=== PATIENT | female | born 1990 | race Caucasian/White ===

== ENCOUNTER 2018-01-09 11:41 | Emergency (ER) | payer BC, OTHER ==
[2018-01-09] MEDS ORDERED: KETOROLAC 30 MG/ML 1 ML VIAL IM STA (12:21)
--- NOTE | 2018-01-09 12:21 | ED ---
General Adult HPI - General Chief complaint: Upper Respiratory Infection Stated complaint: flu like symptoms Time Seen by Provider: 01/09/18 12:13 Source: patient, RN notes reviewed Mode of arrival: ambulatory Limitations: no limitations - History of Present Illness Initial comments: 27 yo female presenting for evaluation of his congestion, cough, and vomiting. Patient's symptoms have been present for the past 24 hours. She also complains of subjective fever and chills. Denies sore throat. Denies abdominal pain. Patient states she had significant amount of vomiting yesterday, this is progressed to dry heaving and according to the patient is somewhat improved. No diarrhea. No dysuria. No specific pain complaint. - Related Data Previous Rx's Medication Instructions Recorded Acetaminophen-Codeine 300-30mg 1 tab PO Q4H PRN #20 tablet 10/14/15 [Tylenol #3] Clindamycin HCl 300 mg PO Q6HR #40 cap 10/14/15 Ibuprofen [Motrin] 600 mg PO Q8HR PRN #20 tab 10/14/15 Levofloxacin [Levaquin] 500 mg PO DAILY 3 Days #5 tab 01/09/18 Allergies Allergy/AdvReac Type Severity Reaction Status Date / Time Penicillins Allergy Unknown Verified 01/09/18 12:10 Review of Systems ROS Statement: Those systems with pertinent positive or pertinent negative responses have been documented in the HPI. ROS Other: All systems not noted in ROS Statement are negative. Past Medical History Additional Past Medical History / Comment(s): vertigo History of Any Multi-Drug Resistant Organisms: None Reported Past Surgical History: Tonsillectomy Past Psychological History: Depression Smoking Status: Never smoker Past Alcohol Use History: None Reported Past Drug Use History: None Reported General Exam Limitations: no limitations General appearance: alert, in no apparent distress Head exam: Present: atraumatic, normocephalic Eye exam: Present: normal appearance, PERRL, EOMI ENT exam: Present: normal exam, normal oropharynx, mucous membranes moist, TM's normal bilaterally Neck exam: Present: normal inspection. Absent: tenderness, meningismus Respiratory exam: Present: normal lung sounds bilaterally. Absent: respiratory distress, wheezes, rhonchi Cardiovascular Exam: Present: regular rate, normal rhythm GI/Abdominal exam: Present: soft. Absent: distended, tenderness Extremities exam: Present: normal inspection, normal capillary refill. Absent: pedal edema Neurological exam: Present: alert, oriented X3, CN II-XII intact. Absent: motor sensory deficit Psychiatric exam: Present: normal affect, normal mood Skin exam: Present: warm, dry, intact. Absent: rash, cyanosis, diaphoretic Course Vital Signs 01/09/18 12:07 Temperature 98.9 F Pulse Rate 90 Respiratory 20 Rate Blood Pressure 136/77 O2 Sat by Pulse 100 Oximetry Medical Decision Making - Medical Decision Making 27 yo female presenting with cough, nasal congestion. Patient also had several episodes of vomiting. Chest x-ray is obtained, negative for focal pneumonia. Influenza negative. Urinalysis does show signs of infection although there is significant squamous cells representing contamination. Urine culture will be obtained. Patient will be started on Levaquin for both upper respiratory tract infection as well as UTI. She will follow-up with primary care physician. - Lab Data Lab Results 01/09/18 01/09/18 01/09/18 Range/Units 12:28 12:28 12:28 Urine Color Yellow Urine Appearance Cloudy H (Clear) Urine pH 5.5 (5.0-8.0) Ur Specific [place] 1.026 (1.001-1.035) Urine Protein 1+ H (Negative) Urine Glucose (UA) Negative (Negative) Urine Blood Moderate H (Negative) Urine Nitrite Negative (Negative) Urine Bilirubin Negative (Negative) Urine Urobilinogen 2.0 (<2.0) mg/dL Ur Leukocyte Esterase Moderate H (Negative) Urine RBC 10 H (0-5) /hpf Urine WBC 31 H (0-5) /hpf Ur Squamous Epith Cells 28 H (0-4) /hpf Urine Bacteria Moderate H (None) /hpf Urine Mucus Many H (None) /hpf Urine HCG, Qual Not Detected (Not Detectd) Influenza Type A RNA Not Detected (Not Detectd) Influenza Type B (PCR) Not Detected (Not Detectd) Disposition Clinical Impression: Upper respiratory infection, UTI (urinary tract infection) Disposition: HOME SELF-CARE Condition: Good Instructions: Upper Respiratory Infection (ED), Urinary Tract Infection in Women (ED) Prescriptions: Levofloxacin [Levaquin] 500 mg PO DAILY 3 Days #5 tab Referrals: Salima Reynolds DO [Primary Care Provider] - 1-2 days Time of Disposition: 13:01
--- NOTE | 2018-01-09 12:38 | XR ---
EXAMINATION TYPE: XR chest 2V DATE OF EXAM: 01/09/2018 COMPARISON: NONE INDICATION: Pain congestion TECHNIQUE: Frontal and lateral views of the chest are obtained. FINDINGS: The heart size is normal. The pulmonary vasculature is normal. The lungs are clear. IMPRESSION: 1. No acute pulmonary process.
[2018-01-09 12:56] LABS: Appearance,Urine Cloudy (Clear); Bacteria,Urine Moderate /hpf; Bilirubin,Urine Negative (Negative); Blood,Urine Moderate (Negative); Color,Urine Yellow; Glucose,Urine (UA) Negative (Negative); Ketones,Urine 2+ (Negative); Leukocyte Esterase,Urine Moderate (Negative); Mucus,Urine Many /hpf; PH, Urine 5.5 (5.0-8.0); Protein,Urine 1+ (Negative); RBC,Urine 10 /hpf (0-5); Specific Gravity,Urine 1.026 (1.001-1.035); Squamous Epithelial Cell,Urine 28 /hpf (0-4); WBC,Urine 31 /hpf (0-5)
[2018-01-09 13:27] VITALS: BP 112/72; PULSE 86; RESP 12; TEMP 98.8
== END 2018-01-09 13:40 | disposition home or self-care (01) ==
LOC: EC 11:41
DX: J06.9 Acute upper respiratory infection, unspecified (principal); N39.0 Urinary tract infection, site not specified; Z88.0 Allergy status to penicillin
CPT/HCPCS: 81001; 81025; 87086; 87502; 71046; 99283; 96372; J1885

== ENCOUNTER 2019-01-25 10:48 | Emergency (ER) | payer OTHER ==
[2019-01-25 11:08] VITALS: RESP 16; TEMP 98.4
[2019-01-25] MEDS ORDERED: diphenhydrAMINE 50 MG/ML 1 ML VIAL IVP STA (11:52)
[2019-01-25] MEDS ORDERED: SODIUM CHLORIDE 0.9% 1,000 ML IV STA (11:52)
[2019-01-25] MEDS ORDERED: METOCLOPRAMIDE 5 MG/ML 2 ML VIAL IVP STA (11:52)
--- NOTE | 2019-01-25 11:53 | ED ---
General Adult HPI - General Chief complaint: Dizziness Stated complaint: Dizzy/headache Time Seen by Provider: 01/25/19 11:40 Source: patient, RN notes reviewed Mode of arrival: ambulatory Limitations: no limitations - History of Present Illness Initial comments: Patient 28-year-old female presented to the emergency room today with a chief complaint of migraine headache that started 4 days ago. She does admit that the headache portion when awakened 2 days ago but is still experiencing the sensitivity to light, some blurry vision and dizziness. She does admit that she's felt nauseous at times. Patient states only symptoms were consistent with migraine headaches that she's had before but she's never had these symptoms last. She does admit that she's had a history of vertigo is unsure if this is related. Patient denies any other complaints or symptoms at this time. Patient denies any recent fever, chills, shortness of breath, chest pain, back pain, abdominal pain, nausea or vomiting, numbness or tingling, headaches or visual changes, or any other complaints. - Related Data Home Medications Medication Instructions Recorded Confirmed Venlafaxine HCl [Effexor XR] 150 mg PO DAILY 01/09/18 01/25/19 lamoTRIgine [LaMICtal] 50 mg PO DAILY 01/09/18 01/25/19 Atenolol [Tenormin] 50 mg PO DAILY 01/25/19 01/25/19 Etonogestrel [Nexplanon] 1 implant SQ [id number] 01/25/19 01/25/19 Allergies Allergy/AdvReac Type Severity Reaction Status Date / Time Penicillins Allergy Unknown Verified 01/25/19 12:25 Review of Systems ROS Statement: Those systems with pertinent positive or pertinent negative responses have been documented in the HPI. ROS Other: All systems not noted in ROS Statement are negative. Past Medical History Additional Past Medical History / Comment(s): vertigo History of Any Multi-Drug Resistant Organisms: None Reported Past Surgical History: Tonsillectomy Past Psychological History: Depression Smoking Status: Never smoker Past Alcohol Use History: None Reported Past Drug Use History: None Reported General Exam - General Exam Comments Initial Comments: General: The patient is awake and alert, in no distress, and does not appear acutely ill. Eye: Pupils are equal, round and reactive to light, extra-ocular movements are intact. No nystagmus. There is normal conjunctiva bilaterally. No signs of icterus. Ears, nose, mouth and throat: There are moist mucous membranes and no oral lesions. Neck: The neck is supple, there is no tenderness or JVD. Cardiovascular: There is a regular rate and rhythm. No murmur, rub or gallop is appreciated. Respiratory: Lungs are clear to auscultation, respirations are non-labored, breath sounds are equal. No wheezes, stridor, rales, or rhonchi. Musculoskeletal: Normal ROM, no tenderness. Strength 5/5. Sensation intact. Pulses equal bilaterally 2+. Neurological: A&O x 3. CN II-XII intact, There are no obvious motor or sensory deficits. Coordination appears grossly intact. Speech is normal. Skin: Skin is warm and dry and no rashes or lesions are noted. Psychiatric: Cooperative, appropriate mood & affect, normal judgment. Limitations: no limitations Course Vital Signs 01/25/19 01/25/19 01/25/19 11:07 12:37 13:29 Temperature 98.4 F Pulse Rate 85 59 L 63 Respiratory 16 16 16 Rate Blood Pressure 131/79 94/81 112/66 O2 Sat by Pulse 98 100 100 Oximetry Medical Decision Making - Medical Decision Making Patient's CT of the brain was reviewed and does show evidence for an episode. This was discussed with the patient. Patient's resting comfortable at this time. She does admit that he better after medications given here in emergency room. She states all of her symptoms have resolved. She states that she's had symptoms of blurry vision and photosensitivity with her migraines in the past. She states it was unusual that they continued past the actual headache. Patient is doing well after Reglan, Benadryl, IV bolus. Patient will be discharged ho hi advised continue with ibuprofen for any rebound headaches. She is advised to follow-up with the family physician also to follow-up with neurologist. She states that she will plan to try to follow-up with Dr. Pulido. Patient advised return to emergency room for any other concerns. - Lab Data Result diagrams: 01/25/19 12:32 01/25/19 12:32 Lab Results 01/25/19 01/25/19 01/25/19 Range/Units 12:32 12:32 12:32 WBC 9.2 (3.8-10.6) k/uL RBC 4.90 (3.80-5.40) m/uL Hgb 13.5 (11.4-16.0) gm/dL Hct 41.6 (34.0-46.0) % MCV 84.9 (80.0-100.0) fL MCH 27.6 (25.0-35.0) pg MCHC 32.5 (31.0-37.0) g/dL RDW 13.9 (11.5-15.5) % Plt Count 290 (150-450) k/uL Neutrophils % 72 % Lymphocytes % 19 % Monocytes % 6 % Eosinophils % 2 % Basophils % 1 % Neutrophils # 6.6 (1.3-7.7) k/uL Lymphocytes # 1.7 (1.0-4.8) k/uL Monocytes # 0.5 (0-1.0) k/uL Eosinophils # 0.2 (0-0.7) k/uL Basophils # 0.1 (0-0.2) k/uL Sodium 141 (137-145) mmol/L Potassium 4.0 (3.5-5.1) mmol/L Chloride 106 (98-107) mmol/L Carbon Dioxide 27 (22-30) mmol/L Anion Gap 8 mmol/L BUN 5 L (7-17) mg/dL Creatinine 0.72 (0.52-1.04) mg/dL Est GFR (CKD-EPI)AfAm >90 (>60 ml/min/1.73 sqM) Est GFR (CKD-EPI)NonAf >90 (>60 ml/min/1.73 sqM) Glucose 100 H (74-99) mg/dL Calcium 9.0 (8.4-10.2) mg/dL Total Bilirubin 0.5 (0.2-1.3) mg/dL AST 18 (14-36) U/L ALT 29 (9-52) U/L Alkaline Phosphatase 61 (38-126) U/L Total Protein 6.9 (6.3-8.2) g/dL Albumin 4.0 (3.5-5.0) g/dL Urine Color Urine Appearance (Clear) Urine pH (5.0-8.0) Ur Specific [place] (1.001-1.035) Urine Protein (Negative) Urine Glucose (UA) (Negative) Urine Ketones (Negative) Urine Blood (Negative) Urine Nitrite (Negative) Urine Bilirubin (Negative) Urine Urobilinogen (<2.0) mg/dL Ur Leukocyte Esterase (Negative) Urine RBC (0-5) /hpf Urine WBC (0-5) /hpf Ur Squamous Epith Cells (0-4) /hpf Amorphous Sediment (None) /hpf Urine Bacteria (None) /hpf Urine Mucus (None) /hpf Urine HCG, Qual Not Detected (Not Detectd) 01/25/19 Range/Units 12:32 WBC (3.8-10.6) k/uL RBC (3.80-5.40) m/uL Hgb (11.4-16.0) gm/dL Hct (34.0-46.0) % MCV (80.0-100.0) fL MCH (25.0-35.0) pg MCHC (31.0-37.0) g/dL RDW (11.5-15.5) % Plt Count (150-450) k/uL Neutrophils % % Lymphocytes % % Monocytes % % Eosinophils % % Basophils % % Neutrophils # (1.3-7.7) k/uL Lymphocytes # (1.0-4.8) k/uL Monocytes # (0-1.0) k/uL Eosinophils # (0-0.7) k/uL Basophils # (0-0.2) k/uL Sodium (137-145) mmol/L Potassium (3.5-5.1) mmol/L Chloride (98-107) mmol/L Carbon Dioxide (22-30) mmol/L Anion Gap mmol/L BUN (7-17) mg/dL Creatinine (0.52-1.04) mg/dL Est GFR (CKD-EPI)AfAm (>60 ml/min/1.73 sqM) Est GFR (CKD-EPI)NonAf (>60 ml/min/1.73 sqM) Glucose (74-99) mg/dL Calcium (8.4-10.2) mg/dL Total Bilirubin (0.2-1.3) mg/dL AST (14-36) U/L ALT (9-52) U/L Alkaline Phosphatase (38-126) U/L Total Protein (6.3-8.2) g/dL Albumin (3.5-5.0) g/dL Urine Color Yellow Urine Appearance Cloudy H (Clear) Urine pH 7.0 (5.0-8.0) Ur Specific [place] 1.011 (1.001-1.035) Urine Protein Trace H (Negative) Urine Glucose (UA) Negative (Negative) Urine Ketones Negative (Negative) Urine Blood Small H (Negative) Urine Nitrite Negative (Negative) Urine Bilirubin Negative (Negative) Urine Urobilinogen <2.0 (<2.0) mg/dL Ur Leukocyte Esterase Large H (Negative) Urine RBC 12 H (0-5) /hpf Urine WBC 18 H (0-5) /hpf Ur Squamous Epith Cells 8 H (0-4) /hpf Amorphous Sediment Rare H (None) /hpf Urine Bacteria Many H (None) /hpf Urine Mucus Rare H (None) /hpf Urine HCG, Qual (Not Detectd) Disposition Clinical Impression: Migraine, Empty sella Disposition: HOME SELF-CARE Condition: Good Instructions (If sedation given, give patient instructions): Dizziness (ED) Additional Instructions: Please use medication as discussed. Please follow-up with neurologist/family doctor in the next 2 days of symptoms have not improved. Please return to emergency room if the symptoms increase or worsen or for any other concerns. Is patient prescribed a controlled substance at d/c from ED?: No Referrals: Salima Reynolds DO [Primary Care Provider] - 1-2 days Courtney Frausto MD [Medical Doctor] - 1-2 days Time of Disposition: 14:11
[2019-01-25 12:47] LABS: Basophils # (A) 0.1 k/uL (0-0.2); Basophils % (A) 1 %; Eosinophils # (A) 0.2 k/uL (0-0.7); Eosinophils % (A) 2 %; HCT 41.6 % (34.0-46.0); HGB 13.5 gm/dL (11.4-16.0); Lymphocytes # (A) 1.7 k/uL (1.0-4.8); Lymphocytes % (A) 19 %; MCH 27.6 pg (25.0-35.0); MCHC 32.5 g/dL (31.0-37.0); MCV 84.9 fL (80.0-100.0); Mean Platelet Volume 7.4; Monocytes # (A) 0.5 k/uL (0-1.0); Monocytes % (A) 6 %; Neutrophils # (A) 6.6 k/uL (1.3-7.7); Neutrophils % (A) 72 %; Platelet Count 290 k/uL (150-450); RDW 13.9 % (11.5-15.5); WBC 9.2 k/uL (3.8-10.6)
[2019-01-25 12:54] LABS: Amorphous Sediment,Urine Rare /hpf; Appearance,Urine Cloudy (Clear); Bacteria,Urine Many /hpf; Bilirubin,Urine Negative (Negative); Blood,Urine Small (Negative); Color,Urine Yellow; Glucose,Urine (UA) Negative (Negative); Ketones,Urine Negative (Negative); Leukocyte Esterase,Urine Large (Negative); Mucus,Urine Rare /hpf; Nitrite,Urine Negative (Negative); Protein,Urine Trace (Negative); RBC,Urine 12 /hpf (0-5); Specific Gravity,Urine 1.011 (1.001-1.035); Squamous Epithelial Cell,Urine 8 /hpf (0-4); Urobilinogen,Urine <2.0 mg/dL (<2.0)
[2019-01-25 12:57] LABS: ALT 29 U/L (9-52); AST 18 U/L (14-36); Alkaline Phosphatase 61 U/L (38-126); Anion Gap 8 mmol/L; Blood Urea Nitrogen 5 mg/dL (7-17); Carbon Dioxide 27 mmol/L (22-30); Chloride 106 mmol/L (98-107); Glucose 100 mg/dL (74-99); Sodium 141 mmol/L (137-145); Total Bilirubin 0.5 mg/dL (0.2-1.3); Total Protein 6.9 g/dL (6.3-8.2)
--- NOTE | 2019-01-25 13:48 | CT ---
EXAMINATION TYPE: CT brain wo con DATE OF EXAM: 01/25/2019 COMPARISON: None HISTORY: 28-year-old female Dizzy/Headache TECHNIQUE: Examination was done in axial plane without intravenous contrast. Coronal and sagittal r econstructions performed. CT DLP: 1034.4 mGycm Automated exposure control for dose reduction was used. FINDINGS: There is no evidence of acute intracranial hemorrhage, acute ischemic changes, mass, mass-effect, or extra-axial fluid collection. There is no effacement of cerebral sulci or basal subarachnoid cister ns. There is no hydrocephalus. There is no midline shift. Arrington-white matter distinction is preserv ed. Incidental partially empty sella. Paranasal sinuses and mastoid air cells well pneumatized. Orbits and globes are intact. IMPRESSION: 1. Empty sella. Clinically correlate as to any potential clinical significance (ie, idiopathic intrac ranial hypertension). However, note that this is generally an incidental finding. 2. No acute intracranial abnormality seen.
[2019-01-25 14:17] VITALS: BP 120/62; PULSE 72
== END 2019-01-25 14:16 | disposition home or self-care (01) ==
LOC: EC 10:48
DX: G43.909 Migraine, unspecified, not intractable, without status migrainosus (principal); E23.6 Other disorders of pituitary gland; F32.9 Major depressive disorder, single episode, unspecified; Z79.3 Long term (current) use of hormonal contraceptives; Z79.899 Other long term (current) drug therapy; Z88.0 Allergy status to penicillin
CPT/HCPCS: 36415; 80053; 85025; 81001; 81025; 87086; 70450; 99284; 96374; 96375; 96361 ×2; J1200; J2765

== ENCOUNTER → 2019-08-30 | Outpatient (CLI) | payer OTHER ==
--- NOTE | 2019-08-30 21:03 | CONS ---
CONSULTATION REASON FOR CONSULTATION: Sleep apnea. Tressa is 29 and she is coming in due to concern about sleep apnea. 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 She feels very tired and sleepy and fatigued during the day. She snores. She is a single mom; not sure if she has any witnessed apneas. She goes to bed around 12:30 a.m. and wakes up at 7:30 a.m. in the morning. No sleep paralysis or cataplexy. No hallucinations. Her weight is up by around 50 pounds over the past 10 years. PAST MEDICAL HISTORY: 1. History of optic neuritis, receiving steroid injections to her eyes. 2. Depression. 3. Bipolar disorder. 4. Migraines. PAST SURGICAL HISTORY: Past surgical history includes tonsillectomy. DRUG ALLERGIES: PENICILLIN. OUTPATIENT MEDICATION: Outpatient medications includes: 1. Topamax 100 mg twice a day. 2. Venlafaxine 150 mg p.o. daily. 3. Lamictal 25 mg 2 tablets once a day. 4. Motrin 800 mg on a p.r.n. basis. SOCIAL HISTORY: Nonsmoker. Social alcohol drinker. No history of IV drugs. FAMILY HISTORY: Mother had cervical cancer. Father had kidney disease. REVIEW OF SYSTEMS: Fourteen-point review of systems was done. No reported history of any insomnia. No choking or gasping for air. No grinding of the teeth. No sleepwalking. No dry mouth. No anxiety or panic attacks. She has history of depression and bipolar disorder. No heartburn. No claustrophobia. No sexual dysfunction. No issues with memory. Some difficulties with concentration, especially while at work. She can take a nap, and she typically tries to take a nap around 11 a.m. if she has the opportunity to do so. She wakes up on multiple occasions in the middle of the night. No chest pain. No shortness of breath. No dyspnea. No other complaints otherwise other than the things mentioned above. Her current Norman score is 5. PHYSICAL EXAMINATION: VITAL SIGNS: Her blood pressure is 101/72, pulse 68, respirations 16, temperature 98.2, saturation 99% on room air. Height is 5 feet 3 inches, weight 243, BMI 43.9. Neck size is 15 inches. GENERAL APPEARANCE: Calm, comfortable. HEAD: Atraumatic, normocephalic. NECK: Supple. No JVD. No goiter or neck masses. Mallampati class IV. LUNGS: Clear to auscultation. HEART: Heart sounds are regular rate and rhythm. Normal S1, S2. No S3, S4. No murmurs. ABDOMEN: Soft, nontender. No organomegaly. EXTREMITIES: No edema. No cyanosis or clubbing. NEUROLOGIC: Awake and alert. No focal neurological deficits. PSYCHIATRIC: Positive for depression and anxiety, well treated for now. IMPRESSION: 1. Chronic hypersomnia with increased suspicion for obstructive sleep apnea. Will need further investigation. 2. Snoring. 3. Obesity with interval 50-pound weight gain. Current BMI is 43.9. 4. History of chronic anxiety/depression/bipolar disorder. 5. History of optic neuritis. 6. History of migraine. PLAN: 1. Recommend losing weight. 2. Patient is already sleeping on her side, which is her preferred side of sleeping. 3. Implement good sleep hygiene measures. 4. Continue treatment of migraines and treatment of depression and bipolar disorder. 5. Proceed with a screening polysomnogram to rule out the possibility of obstructive sleep apnea and treat accordingly. MMODL / IJN: [id number] /
== END | disposition home or self-care (01) ==
LOC: SLEEP 15:49
PROVIDERS: ATTEND Internal Medicine Critical Care Medicine
DX: R06.83 Snoring (principal); R53.83 Other fatigue; G47.10 Hypersomnia, unspecified; E66.9 Obesity, unspecified; Z68.41 Body mass index [BMI] 40.0-44.9, adult; Z86.59 Personal history of other mental and behavioral disorders; Z86.69 Personal history of other diseases of the nervous system and sense organs; Z79.899 Other long term (current) drug therapy
CPT/HCPCS: 99211

== ENCOUNTER 2020-01-16 16:19 | Emergency (ER) | payer OTHER ==
[2020-01-16 16:38] VITALS: RESP 18
[2020-01-16] MEDS ORDERED: KETOROLAC 30 MG/ML 1 ML VIAL IM STA (17:00)
--- NOTE | 2020-01-16 17:03 | ED ---
Abdominal Pain HPI - General Chief Complaint: Abdominal Pain Stated Complaint: rib pain Time Seen by Provider: 01/16/20 16:50 Source: patient Mode of arrival: ambulatory Limitations: no limitations - History of Present Illness Initial Comments: Patient is a 29-year-old female presenting to emergency Department with a chief complaint rib pain. Patient said this an ongoing for the past week. States the pain is exacerbated with full inspiration, sneeze or cough. Patient reports the pain is located inferior to the left breast. States the patient pain is reproduced by palpation. Denies any recent trauma to the region. Denies taking any medication to alleviate the symptoms. Denies any shortness of breath, chest pain, nausea, vomiting, abdominal pain. Denies unilateral leg swelling, hemoptysis, recent trauma or surgery or previous history of DVT and PE, oral contraceptives. - Related Data Home Medications Medication Instructions Recorded Confirmed Venlafaxine HCl [Effexor XR] 150 mg PO DAILY 01/09/18 01/25/19 lamoTRIgine [LaMICtal] 50 mg PO DAILY 01/09/18 01/25/19 Atenolol [Tenormin] 50 mg PO DAILY 01/25/19 01/25/19 Etonogestrel [Nexplanon] 1 implant SQ [id number] 01/25/19 01/25/19 Allergies Allergy/AdvReac Type Severity Reaction Status Date / Time Penicillins Allergy Unknown Verified 01/16/20 16:38 Review of Systems ROS Statement: Those systems with pertinent positive or pertinent negative responses have been documented in the HPI. ROS Other: All systems not noted in ROS Statement are negative. Past Medical History Additional Past Medical History / Comment(s): vertigo History of Any Multi-Drug Resistant Organisms: None Reported Past Surgical History: Tonsillectomy Past Psychological History: Depression Smoking Status: Never smoker Past Alcohol Use History: None Reported Past Drug Use History: None Reported General Exam Limitations: no limitations General appearance: alert, in no apparent distress Head exam: Present: atraumatic, normocephalic Eye exam: Present: normal appearance, PERRL, EOMI Pupils: Present: normal accommodation ENT exam: Present: normal exam Neck exam: Present: normal inspection, full ROM Respiratory exam: Present: normal lung sounds bilaterally, chest wall tenderness (Tenderness along the lower anterior rib cage. Reproducible pain with palpation.). Absent: respiratory distress, wheezes, rales Cardiovascular Exam: Present: regular rate, normal rhythm, normal heart sounds GI/Abdominal exam: Present: soft. Absent: distended, tenderness (No left upper quadrant tenderness) Extremities exam: Present: normal inspection, full ROM Back exam: Present: normal inspection, full ROM Neurological exam: Present: alert, oriented X3 Psychiatric exam: Present: normal affect, normal mood Skin exam: Present: warm, dry, intact, normal color Course Vital Signs 01/16/20 16:33 Temperature 98.6 F Pulse Rate 74 Respiratory 18 Rate Blood Pressure 148/80 O2 Sat by Pulse 100 Oximetry Medical Decision Making - Medical Decision Making Patient is a 29-year-old female presenting to the emergency department with a chief complaint of left rib pain. Physical examination shows centimeters along the left, lower anterior rib cage. The pain is reproducible with palpation. Pain with full inspiration. No nausea vomiting abdominal pain. No trauma to the region. Chest x-ray with dedicated left rib view shows no signs of acute processes. Patient advised to take NSAIDs to help improve the pain. Patient is perc negative. Return parameters were thoroughly discussed patient was understanding and agreeable. Case discussed with physician. Disposition Clinical Impression: Rib pain on left side Disposition: HOME SELF-CARE Condition: Stable Instructions (If sedation given, give patient instructions): Costochondritis (ED) Additional Instructions: Follow-up with her primary care. Take [id number] anti-inflammatory with her medication. Return to emergency department if symptoms worsen. Is patient prescribed a controlled substance at d/c from ED?: No Referrals: Salima Reynolds DO [Primary Care Provider] - 1-2 days Time of Disposition: 17:42
--- NOTE | 2020-01-16 17:24 | XR ---
EXAMINATION TYPE: XR ribs LT w pa chest x-ray DATE OF EXAM: 01/16/2020 CLINICAL HISTORY: Chest and left-sided rib pain. TECHNIQUE: Single frontal view of the chest is obtained. A frontal and oblique images of the left-celine ed ribs. COMPARISON: Prior chest x-ray January 09, 2018 FINDINGS: There is no focal air space opacity, pleural effusion, or pneumothorax seen. The cardiac silhouette size is within normal limits. The osseous structures are intact. Dedicated images the left-sided ribs show no acute displaced fractures. Overlying soft tissue is unre markable. IMPRESSION: 1. No acute cardiopulmonary process. 2. No acute displaced left-sided rib fractures.
[2020-01-16 17:49] VITALS: BP 121/75; PULSE 72; TEMP 99.1
== END 2020-01-16 17:49 | disposition home or self-care (01) ==
LOC: EC 16:19
DX: R07.81 Pleurodynia (principal); F32.9 Major depressive disorder, single episode, unspecified; Z79.3 Long term (current) use of hormonal contraceptives; Z79.899 Other long term (current) drug therapy; Z88.0 Allergy status to penicillin
CPT/HCPCS: 71101; 99284; 96372; J1885

== ENCOUNTER → 2020-10-17 | Outpatient (CLI) | payer OTHER ==
--- NOTE | 2020-10-17 12:48 | US ---
EXAMINATION TYPE: Transabdominal DATE OF EXAM: 10/17/2020 10:37 AM COMPARISON: NONE CLINICAL HISTORY: Z36 Confirm dates. EXAM PERFORMED: EXAM MEASUREMENTS: GESTATIONAL AGE / DATING Physician Established: Not yet established ( Dates by LMP: (6 weeks/3 days) EDC: 06/09/20 Dates by First Scan: No previous this is first scan Dates by Current Scan for: ( 9 weeks/4 days) EDC: 05-18-21 MATERNAL ANATOMY Uterus: 11.4 x 5.7 x 7.6cm Right Ovary: 2.4 x 1.8 x 1.8cm Left Ovary: 1.9 x 1.3 x 1.5cm Post CDS / Adnexa: wnl Presence of free fluid: no Presence of 2 small subchorionic bleeds, fundal measuring measuring 1.4 x 0.6 x 1.1cm, inferior irreg ular shaped measuring 1.1 x 2.0 x 0.5cm GESTATION / SURVEY CRL: 2.6cm (9 weeks/4 days) Yolk Sac (normal less than 6mm): 4mm Heart Rate: 174 bpm Rhythm: Normal IUP: Viable IUP Date of LMP: 09-02-20 Beta HcG (if available): Not available at this time IMPRESSION: Single viable intrauterine corresponding to an ultrasound age 9 weeks 4 days with estimated date of delivery 05/18/2021. Small subchorionic hemorrhages are noted.
== END | disposition home or self-care (01) ==
LOC: RADUSWWP 09:39
PROVIDERS: ATTEND Obstetrics & Gynecology
DX: O20.8 Other hemorrhage in early pregnancy (principal); Z3A.09 9 weeks gestation of pregnancy
CPT/HCPCS: 76801

== ENCOUNTER 2021-05-14 06:15 | Inpatient (IN) | payer OTHER ==
[2021-05-14] MEDS: LACTATED RINGERS 1,000 ML IV SCH ×3 (07:00→16:34)
[2021-05-14] MEDS: OXYTOCIN 30 UNITS/500 ML NS 30 UNIT in SALINE 1 500ML.BAG IV SCH ×2 (07:20→20:47)
[2021-05-14] MEDS ORDERED: LIDOCAINE 0.5% (PF) 5 MG/ML (50 ML SDV) SQ PRN (07:26)
[2021-05-14] MEDS ORDERED: OXYTOCIN 10 UNIT/ML 1 ML VIAL IM PRN (07:26)
[2021-05-14] MEDS ORDERED: TERBUTALINE 1 MG/ML VIAL SQ PRN (07:26)
[2021-05-14] MEDS ORDERED: METHYLERGONOVINE 0.2 MG/ML 1 ML AMP IM PRN (07:26)
[2021-05-14] MEDS ORDERED: CARBOPROST TROMETHAMINE 250 MCG/ML 1 ML AMP IM PRN (07:26)
[2021-05-14 08:02] LABS: Basophils % (A) 0 %; Eosinophils # (A) 0.1 k/uL (0-0.7); Eosinophils % (A) 1 %; HCT 31.6 % (34.0-46.0); HGB 10.9 gm/dL (11.4-16.0); Lymphocytes # (A) 1.5 k/uL (1.0-4.8); Lymphocytes % (A) 16 %; MCH 27.7 pg (25.0-35.0); MCHC 34.4 g/dL (31.0-37.0); MCV 80.6 fL (80.0-100.0); Mean Platelet Volume 8.2; Monocytes # (A) 0.7 k/uL (0-1.0); Monocytes % (A) 7 %; Neutrophils % (A) 75 %; Platelet Count 235 k/uL (150-450); Poikilocytosis Slight; RBC 3.92 m/uL (3.80-5.40); RDW 14.7 % (11.5-15.5); WBC 9.2 k/uL (3.8-10.6)
[2021-05-14] MEDS ORDERED: ROPIVACAINE 100 MG, fentaNYL (PF). 200 MCG in SODIUM CHLORIDE 0.9% 76 ML EPIDURAL ONE (11:55)
[2021-05-14] MEDS ORDERED: diphenhydrAMINE 50 MG CAP PO PRN (20:21)
[2021-05-14] MEDS ORDERED: BENZOCAINE/MENTHOL SPRAY 1 GM/SPRAY AEROSOL TOPICAL PRN (20:21)
[2021-05-14] MEDS ORDERED: diphenhydrAMINE 25 MG CAP PO PRN (20:21)
[2021-05-14] MEDS ORDERED: HYDROCORTISONE 2.5% RECTAL CREAM 30 GM TUBE RECTAL PRN (20:21)
[2021-05-14] MEDS ORDERED: SIMETHICONE 80 MG CHEWABLE PO PRN (20:21)
[2021-05-14] MEDS ORDERED: LANOLIN CREAM 5 GM TUBE TOPICAL PRN (20:21)
[2021-05-14] MEDS ORDERED: diphenhydrAMINE 50 MG/ML 1 ML VIAL IVP PRN ×2 (20:21)
[2021-05-14] MEDS ORDERED: ZOLPIDEM 5 MG TAB PO PRN (20:21)
--- NOTE | 2021-05-14 20:24 | P.HPOB ---
History of Present Illness H&P Date: 05/14/21 Chief Complaint: Intrauterine at term: Induction of labor Patient is a 31-year-old with one set of twins with 3 babies who arrives for induction of labor. She is 39 weeks gestation and all questions were answered for her prior to the induction. Her Precis course was generally unremarkable. She was followed very closely due to a marginal cord insertion an d a breech baby up until approximately 36 weeks at which time converted to vertex. She is dilated to 1-1/2 cm 70% effaced and -3 station. Category 1 tracing is noted. Artificial rupture membranes was performed and clear fluid is noted. Pitocin augmentation of labor as planned an epidural as plan for analgesia. Past Medical History Past Medical History: No Reported History Additional Past Medical History / Comment(s): vertigo History of Any Multi-Drug Resistant Organisms: None Reported Past Surgical History: Tonsillectomy Past Psychological History: Depression Smoking Status: Never smoker Past Alcohol Use History: None Reported Past Drug Use History: None Reported Medications and Allergies Home Medications Medication Instructions Recorded Confirmed Type Pnv 11/Iron Fum/Folic Acid/Om3 1 tab PO DAILY 05/14/21 05/14/21 History [Virt-Huber Dha Softgel] Allergies Allergy/AdvReac Type Severity Reaction Status Date / Time Penicillins Allergy Rash/Hives Verified 05/14/21 17:29 Exam Osteopathic Statement: *. No significant issues noted on an osteopathic structural exam other than those noted in the History and Physical/Consult. Vital Signs Temp Pulse Resp BP Pulse Ox 05/14/21 06:46 98.6 F 86 16 134/76 98 Intake and Output 05/14/21 05/14/21 05/14/21 06:59 14:59 22:59 Intake Total 1000 Output Total 400 Balance 600 Intake: IV 1000 Output: Urine 400 Other: # Voids 2 Weight 117.027 kg - OBG Physical Exam Breast: both: normal (no masses) Abdomen: bowel sounds normal, no diffuse tenderness, no bruit present, no guarding noted, no hepatomegaly, no splenomegaly, no mass Vulva: both: normal Vagina: normal moisture, no discharge Cervix: no lesion, no discharge Uterus: normal size, normal contour Adnexa: both: normal Anus/Rectum: normal perianal skin, no rectal mass, no hemorrhoids, heme negative Results Result Diagrams: 05/14/21 07:39 Abnormal Lab Results - Last 24 Hours (Table) 05/14/21 Range/Units 07:39 Hgb 10.9 L (11.4-16.0) gm/dL Hct 31.6 L (34.0-46.0) %
--- NOTE | 2021-05-14 20:25 | P.PROBDLV ---
Vaginal Delivery Note - . Vaginal Delivery Note: Patient progressed complete and pushed with spontaneous vaginal delivery of a viable female over an intact perineum. Falling deliver the head anterior posterior shoulders were easily delivered from right occiput anterior position followed by the baby fully. Mouth nares were both then bulb suctioned and baby was placed on mother's abdomen where the umbilical cord was allowed to pulsate for 40 seconds prior to clamping and cutting. Relatively short cord is noted. Once cord was cut cord blood was collected. Nursery personnel was present and assumed care. Placenta was then delivered intact and Pitocin was added to the IV. There was some bleeding it was not tremendous amount but she has a history of hemorrhage and 1 dose of Methergine IM was given. scores and weight are pending, but both mother and baby are stable following delivery.
[2021-05-14] MEDS: IBUPROFEN 600 MG TAB PO SCH (20:50)
[2021-05-15] MEDS: IBUPROFEN 600 MG TAB PO SCH ×3 (03:15→16:19)
--- NOTE | 2021-05-15 07:34 | P.DS ---
Providers Date of admission: 05/14/21 06:32 Expected date of discharge: 05/15/21 Attending physician: Bharat Reis Primary care physician: Stated None Hospital Course: Janel is doing very well day 1. She is involuting, voiding and tolerating her diet. She voices no complaints and is requesting discharge home tonight. Vital signs are stable and she is afebrile. Heart regular, lungs clear, extremities without pain. Abdomen soft uterus is firm. Lochia is reported to be light. Prescription for Motrin was for her to her pharmacy. Discharge instructions were thoroughly reviewed and all questions were answered for her prior to discharge. She is stable for discharge this time. Patient Condition at Discharge: Good Plan - Discharge Summary Discharge Rx Participant: Yes New Discharge Prescriptions: New Ibuprofen [Motrin] 600 mg PO Q6HR PRN #30 tab PRN Reason: Pain No Action Pnv 11/Iron Fum/Folic Acid/Om3 [Virt-Huber Dha Softgel] 1 tab PO DAILY Discharge Medication List Pnv 11/Iron Fum/Folic Acid/Om3 [Virt-Huber Dha Softgel] 1 tab PO DAILY 05/14/21 [History] Ibuprofen [Motrin] 600 mg PO Q6HR PRN #30 tab 05/15/21 [Rx] Follow up Appointment(s)/Referral(s): Bharat Reis DO [Doctor of Osteopathic Medicine] - 06/24/21 3:00 pm Activity/Diet/Wound Care/Special Instructions: Heavy lifting, limit stairs and driving, and pelvic rest. If any high temperatures, heavy bleeding, or severe pain call my office Discharge Disposition: HOME SELF-CARE
[2021-05-15] MEDS: ACETAMINOPHEN TAB 325 MG TAB PO PRN ×2 (08:14→12:54)
[2021-05-15] MEDS: SENNOSIDES-DOCUSATE SODIUM 1 EACH TAB PO SCH ×2 (08:14→20:18)
[2021-05-15 08:42] VITALS: RESP 18
[2021-05-15 16:49] VITALS: BP 108/69; PULSE 79; TEMP 97.8
== END 2021-05-15 22:00 | disposition home or self-care (01) | DRG 807 ==
LOC: 4FBP 06:32
PROVIDERS: ADMIT Obstetrics & Gynecology; ATTEND Obstetrics & Gynecology
PROC: 10E0XZZ Delivery of Products of Conception, External Approach (ICD-10-PCS; principal; 2021-05-14)
DX: O69.3XX0 Labor and delivery complicated by short cord, not applicable or unspecified (principal); Z37.0 Single live birth; O43.193 Other malformation of placenta, third trimester; Z3A.39 39 weeks gestation of pregnancy
CPT/HCPCS: 85025; 86850; 86900; 86901